=== PATIENT | female | born 2000 | race Hispanic/Latino ===

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

== ENCOUNTER 2023-09-02 11:54 | Emergency (ER) | payer OTHER, SELFPAY ==
[2023-09-02] MEDS ORDERED: GABAPENTIN 300 MG CAP ONE (12:07)
[2023-09-02] MEDS ORDERED: DIAZEPAM 10 MG/2 ML INJ SYRINGE ONE (12:07)
[2023-09-02] MEDS ORDERED: CYCLOBENZAPRINE 10 MG TAB ONE (12:07)
--- NOTE | 2023-09-02 13:31 | RAD REPORT ---
EXAM DESCRIPTION: CT - C Spine Wo Con - 09/02/2023 1:06 pm CLINICAL HISTORY: Left radiculopathy COMPARISON: None TECHNIQUE: Computed axial tomography of the cervical spine were obtained with sagittal and coronal r econstruction images generated and reviewed. All CT scans are performed using dose optimization technique as appropriate and may include automated exposure control or mA/KV adjustment according to patient size. FINDINGS: A cervical fracture is not seen. No dislocation. C1-2 to C4-5 appear unremarkable Evaluation of C5-6 through C7-T1 is suboptimal secondary to artifact. No gross abnormality of neural foramina. Limited evaluation spinal canal. 5 millimeter sclerosis vertebral body C5. A smaller area of sclerosis vertebral body C4 IMPRESSION: A cervical fracture is not seen. Unremarkable evaluation upper and mid cervical spine Limited evaluation of the distal cervical spine. If the patient continues have symptoms to suggest spinal cord/spinal canal/ neural foraminal patholog y then MRI would be recommended. Small areas of sclerosis within C4 and C5 are nonspecific. A followup x-ray cervical spine in 3 month s recommended for re-evaluation
--- NOTE | 2023-09-02 13:35 | EDPHYS ---
Physician Documentation [facility] Name: Josee Carl Age: 23 yrs Sex: Female : 2000 Arrival Date: 09/02/2023 Time: 11:54 Bed 5 Private MD: ED Physician Thompson Desir HPI: 09/01 12:05 This 23 yrs old Female presents to ER via Unassigned with complaints of Stiff sb4 Neck. 12:05 The patient or guardian complains of pain, that is acute. The symptoms are located on sb4 the left posterior aspect of neck and left lateral aspect of neck. Onset: The symptoms/episode began/occurred this morning. Context: The neck injury/problem resulted from from unknown cause. Associated signs and symptoms: Pertinent negatives: headache, numbness, tingling. The pain radiates to the left arm. The patient has not experienced similar symptoms in the past. pain/stiffness in left neck that radiates down left arm. no numbness, tingling, weakness. no known injury. tried icy hot without significant improvement. Historical: - Allergies: 12:06 No Known Allergies; ll1 - PMHx: 12:06 None; ll1 - PSHx: 12:06 None; ll1 - Immunization history:: Adult Immunizations up to date. - Social history:: Smoking status: Patient denies any tobacco usage or history of. ROS: 12:05 Constitutional: Negative for fever, chills, and weight loss, sb4 12:05 Neck: Positive for pain with movement, pain at rest, stiffness, of the left lateral aspect of neck and left posterior aspect of neck, 12:05 All other systems are negative, Exam: 12:05 ENT: Mucous membranes moist. sb4 12:05 Constitutional: The patient appears in no acute distress, alert, awake, obese, 12:05 Neck: External neck: tenderness, that is mild, of the left posterior aspect of neck and left lateral aspect of neck, ROM/movement: pain, that is mild, with any movement, limited range of motion, is not appreciated, Meningeal signs: are not present, nuchal rigidity, is not appreciated, Vital Signs: 12:06 BP 148 / 92; Pulse 80; Resp 16; Temp 97.9; Pulse Ox 98% on R/A; Weight 113.4 kg; Height ll1 5 ft. 5 in. ; Pain 5/10; 13:44 BP 132 / 86; Pulse 84; Resp 18; Pulse Ox 100% on R/A; mb9 12:06 Body Mass Index 41.60 (113.40 kg, 165.1 cm) ll1 12:06 Pain Scale: Adult ll1 MDM: 12:00 Patient medically screened. sb4 13:34 Data reviewed: vital signs, nurses notes, radiologic studies, and as a result, I will sb4 discharge patient. Counseling: I had a detailed discussion with the patient and/or guardian regarding the historical points, exam findings, and any diagnostic results supporting the discharge/admit diagnosis, radiology results, to return to the emergency department if symptoms worsen or persist or if there are any questions or concerns that arise at home. 09/01 12:04 Order name: CT C Spine; Complete Time: 13:33 sb4 Administered Medications: 12:12 Drug: Cyclobenzaprine PO 10 mg PO once Route: PO; as6 13:45 Follow up: Response: No adverse reaction mb9 12:12 Drug: Gabapentin PO 300 mg PO once Route: PO; as6 13:45 Follow up: Response: No adverse reaction mb9 12:12 Drug: Diazepam IM 5 mg IM once Route: IM; Site: right deltoid; as6 13:45 Follow up: Response: No adverse reaction mb9 Disposition: 14:51 I was immediately available on-site in the Emergency Department for consultation in the ms3 care of the patient. Disposition Summary: 09/02/23 13:35 Discharge Ordered Notes: Location: Home sb4 Problem: new sb4 Symptoms: have improved sb4 Condition: Stable sb4 Diagnosis - Radiculopathy, cervical region sb4 Followup: sb4 - With: Emergency Department - When: As needed - Reason: Trouble breathing, Worsening of condition Discharge Instructions: - Discharge Summary Sheet sb4 - Pinched Nerve sb4 - Neck Exercises sb4 Forms: - Thank You Letter sb4 - Patient Portal Instructions sb4 - Leadership Thank You Letter sb4 Prescriptions: - Ibuprofen 800 mg Oral Tablet - take 1 tablet ORAL route every 8 hours As needed take with food; 30 tablet; sb4 Refills: 0, Product Selection Permitted - Cyclobenzaprine 10 mg Oral Tablet - take 1 tablet ORAL route every 8 hours As needed; 30 tablet; Refills: 0, sb4 Product Selection Permitted Signatures: Dispatcher [employer] Ryder Rajan, RN RN ll1 Thompson Desir, DO SHIRLEY ms3 Fredi Joshi RN RN as6 Marylin [place], CARRIE BUTLER sb4 Lali Rogers RN mb9
--- NOTE | 2023-09-02 13:35 | ER ---
Nurse's Notes [facility] Name: Josee Carl Age: 23 yrs Sex: Female : 2000 Arrival Date: 09/02/2023 Time: 11:54 Bed 5 Private MD: Diagnosis: Radiculopathy, cervical region Presentation: 09/01 12:06 Chief complaint: Patient states: L side of neck pain with movements, radiates into L ll1 arm. Started after she woke up this AM. No trauma or falls. Coronavirus screen: Client denies travel out of the [place] in the last 14 days. At this time, the client does not indicate any symptoms associated with coronavirus-19. Ebola Screen: Patient denies travel to an Ebola-affected area in the 21 days before illness onset. Initial Sepsis Screen: Does the patient meet any 2 criteria? No. Patient's initial sepsis screen is negative. Does the patient have a suspected source of infection? No. Patient's initial sepsis screen is negative. Risk Assessment: Do you want to hurt yourself or someone else? Patient reports no desire to harm self or others. Onset of symptoms was September 02, 2023. 12:06 Method Of Arrival: Ambulatory ll1 12:06 Acuity: IKE 3 ll1 Historical: - Allergies: 12:06 No Known Allergies; ll1 - PMHx: 12:06 None; ll1 - PSHx: 12:06 None; ll1 - Immunization history:: Adult Immunizations up to date. - Social history:: Smoking status: Patient denies any tobacco usage or history of. Screenin:08 [facility] ED Fall Risk Assessment (Adult) History of falling in the last 3 months, mb9 including since admission No falls in past 3 months (0 pts) Confusion or Disorientation No (0 pts) Intoxicated or Sedated No (0 pts) Impaired Gait No (0 pts) Mobility Assist Device Used No (0 pt) Altered Elimination No (0 pt) Score/Fall Risk Level 0 - 2 = Low Risk Oriented to surroundings, Maintained a safe environment, Educated pt \T\ family on fall prevention, incl call for assistance when getting out of bed. Abuse screen: Denies threats or abuse. Nutritional screening: No deficits noted. Tuberculosis screening: No symptoms or risk factors identified. Assessment: 12:12 General: Appears in no apparent distress. Behavior is calm, cooperative. Pain: mb9 Complains of pain in neck Pain radiates to left arm Pain currently is 7 out of 10 on a pain scale. Quality of pain is described as throbbing, Pain began suddenly. Neuro: Hines Agitation-Sedation Scale (RASS): 0 - Alert and Calm Level of Consciousness is awake, alert, obeys commands, Oriented to person, place, time, situation, Appropriate for age. Cardiovascular: Patient's skin is warm and dry. Respiratory: Airway is patent Respiratory effort is even, unlabored, Respiratory pattern is regular, symmetrical. GI: No signs and/or symptoms were reported involving the gastrointestinal system. : No signs and/or symptoms were reported regarding the genitourinary system. EENT: No signs and/or symptoms were reported regarding the EENT system. Derm: Skin is pink, warm \T\ dry. Musculoskeletal: Range of motion: limited in left lateral aspect of neck and left posterior aspect of neck. 13:10 Reassessment: Patient and/or family updated on plan of care and expected duration. Pain mb9 level reassessed. Patient is alert, oriented x 3, equal unlabored respirations, skin warm/dry/pink. Patient states feeling better. Patient states symptoms have improved. Vital Signs: 12:06 BP 148 / 92; Pulse 80; Resp 16; Temp 97.9; Pulse Ox 98% on R/A; Weight 113.4 kg; Height ll1 5 ft. 5 in. ; Pain 5/10; 13:44 BP 132 / 86; Pulse 84; Resp 18; Pulse Ox 100% on R/A; mb9 12:06 Body Mass Index 41.60 (113.40 kg, 165.1 cm) ll1 12:06 Pain Scale: Adult ll1 ED Course: 11:58 Patient arrived in ED. ra3 11:58 Marylin [place] PA-C is PHCP. sb4 11:58 Thompson Desir DO is Attending Physician. sb4 12:05 Arm band placed on Patient placed in an exam room, on a stretcher. ll1 12:07 Triage completed. ll1 12:08 Placed in gown. Bed in low position. Call light in reach. Side rails up X 1. Provided mb9 Education on: press call light if needing anything. Client placed on continuous cardiac and pulse oximetry monitoring. NIBP monitoring applied. Door closed. Noise minimized. Warm blanket given. 12:09 Lali Rogers, RN is Primary Nurse. mb9 13:06 CT C Spine In Process Unspecified. EDMS 13:44 No provider procedures requiring assistance completed. Patient did not have IV access mb9 during this emergency room visit. Administered Medications: 12:12 Drug: Cyclobenzaprine PO 10 mg PO once Route: PO; as6 13:45 Follow up: Response: No adverse reaction mb9 12:12 Drug: Gabapentin PO 300 mg PO once Route: PO; as6 13:45 Follow up: Response: No adverse reaction mb9 12:12 Drug: Diazepam IM 5 mg IM once Route: IM; Site: right deltoid; as6 13:45 Follow up: Response: No adverse reaction mb9 Medication: 12:08 VIS not applicable for this client. mb9 Outcome: 13:35 Discharge ordered by MD. sb4 13:44 Discharged to home ambulatory, mb9 13:44 Condition: stable 13:44 Discharge instructions given to patient, family, Instructed on discharge instructions, follow up and referral plans. Demonstrated understanding of instructions, follow-up care, medications, Prescriptions given X 2, 13:45 Patient left the ED. mb9 Signatures: Dispatcher [employer] Ryder Rajan, RN RN ll1 Fredi Joshi RN RN as6 Marylin [place], PARachael PALali Montoya, RN RN mb9 Jennie Snell 3
[2023-09-02 14:05] VITALS: BP 132/86; TEMP 97.9; O2SAT 100
== END 2023-09-02 13:45 | disposition home or self-care (01) ==
LOC: ER 11:54
DX: M54.12 Radiculopathy, cervical region (principal)
CPT/HCPCS: 72125; 96372; 99284; J3360

== ENCOUNTER 2024-01-12 06:33 | Emergency (ER) | payer SELFPAY ==
[2024-01-12] MEDS ORDERED: NA CHLORIDE 0.9% 1,000 ML ONE (06:56)
[2024-01-12] MEDS ORDERED: ONDANSETRON 4 MG/2 ML VIAL ONE (06:56)
[2024-01-12 07:04] LABS: Absolute Basophils 0.1 K/uL (0-0.5); Absolute Eosinophils 0.1 K/uL (0-0.5); Absolute Lymphocytes (CBC) 2.8 K/uL (0.7-4.9); Absolute Monocytes 0.5 K/uL (0.1-1.3); Absolute Neutrophil 4.1 K/uL (1.8-8.0); Basophils % 0.7 % (0-1.3); Eosinophils % 1.6 % (0-4.4); Hematocrit 41.5 % (36.0-45.0); Hemoglobin 13.2 g/dL (12.0-15.0); Lymphocytes % 37.3 % (15.3-44.8); MCH 25.7 pg (27.0-35.0); MCHC 31.9 g/dL (32.0-36.0); MCV 80.6 fL (80-100); MPV 8.4 fL (7.6-11.3); Neutrophils % 54.4 % (41.7-73.7); Platelets 367 thou/uL (152-406); RBC Red Blood Cell Count 5.16 M/uL (3.86-4.86); Red Cell Distribution Width 14.6 % (12.1-15.2)
[2024-01-12] MEDS ORDERED: DIPHENHYDRAMINE 50 MG/ML VIAL ONE (07:18)
[2024-01-12] MEDS ORDERED: KETOROLAC 30 MG/ML INJ ONE (07:18)
[2024-01-12 07:19] LABS: Albumin 3.5 g/dL (3.4-5.0); Albumin/Globulin Ratio 0.9 (1.1-1.8); Anion Gap 9.1 mEq/L (5.0-15.0); Bilirubin Total 0.4 mg/dL (0.2-1.0); Globulin 3.7 g/dL (2.3-3.5); Potassium 4.1 mEq/L (3.5-5.1); Protein, Total 7.2 g/dL (6.4-8.2)
[2024-01-12 07:43] LABS: Specific Gravity 1.026 (1.005-1.030); Sqamous Epithelial <5 /HPF (None Seen); Urine Bacteria None Seen /HPF (<20); Urine Bilirubin NEGATIVE (Negative); Urine Blood Negative (Negative); Urine Clarity Extremely Turbid (Clear); Urine Color Light-Yellow (Yellow); Urine Culture Reflex Order NOT NEEDED; Urine Glucose NEGATIVE (Negative); Urine Ketones NEGATIVE (Negative); Urine Microscopic Reflex YN ORDER UMIC; Urine Mucus Slight /HPF (None Seen); Urine Nitrite NEGATIVE (Negative); Urine Protein TRACE (Negative); Urine RBC <5 /HPF (None Seen); Urine Urobilinogen Normal (Normal); Urine WBC <5 /HPF (<5)
--- NOTE | 2024-01-12 07:53 | RAD REPORT ---
EXAM DESCRIPTION: CT - Head Brain Wo Cont - 01/12/2024 7:41 am CLINICAL HISTORY: HEADACHE COMPARISON: No comparisons TECHNIQUE: All CT scans are performed using dose optimization technique as appropriate and may inclu de automated exposure control or mA/KV adjustment according to patient size. FINDINGS: No intracranial hemorrhage, hydrocephalus or extra-axial fluid collection.No areas of brai n edema or evidence of midline shift. The paranasal sinuses and mastoids are clear. The calvarium is intact. IMPRESSION: No acute intracranial abnormality.
--- NOTE | 2024-01-12 08:04 | EDPHYS ---
Physician Documentation [facility] Name: Josee Carl Age: 23 yrs Sex: Female : 2000 Arrival Date: 01/12/2024 Time: 06:33 Bed 17 Private MD: ED Physician Andres Uriostegui HPI: 01/11 07:14 This 23 yrs old Female presents to ER via Ambulatory with complaints of madhu Nausea/Vomiting, Headache. 07:14 The patient presents to the emergency department with nausea, vomiting, that is madhu continuous. Onset: The symptoms/episode began/occurred this morning. Possible causes: unknown. The symptoms are aggravated by nothing. The symptoms are alleviated by nothing. Associated signs and symptoms: Pertinent positives: diarrhea, nausea, vomiting. Severity of symptoms: At their worst the symptoms were mild moderate in the emergency department the symptoms are unchanged. The patient has experienced similar episodes in the past. 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 - Infectious Disease History:: Denies. - Social history:: Smoking status: Patient denies any tobacco usage or history of. - Family history:: not pertinent. ROS: 07:14 Constitutional: Negative for fever, chills, and weight loss, Eyes: Negative for injury, madhu pain, redness, and discharge, ENT: Negative for injury, pain, and discharge, Neck: Negative for injury, pain, and swelling, Cardiovascular: Negative for chest pain, palpitations, and edema, Respiratory: Negative for shortness of breath, cough, wheezing, and pleuritic chest pain, Back: Negative for injury and pain, : Negative for injury, bleeding, discharge, and swelling, MS/Extremity: Negative for injury and deformity, Skin: Negative for injury, rash, and discoloration, Psych: Negative for depression, anxiety, suicide ideation, homicidal ideation, and hallucinations, Allergy/Immunology: Negative for hives, rash, and allergies, Endocrine: Negative for neck swelling, polydipsia, polyuria, polyphagia, and marked weight changes, Hematologic/Lymphatic: Negative for swollen nodes, abnormal bleeding, and unusual bruising, 07:14 Abdomen/GI: Positive for nausea and vomiting, diarrhea, Exam: 07:14 Constitutional: This is a well developed, well nourished patient who is awake, alert, madhu and in no acute distress. Head/Face: Normocephalic, atraumatic. Eyes: Pupils equal round and reactive to light, extra-ocular motions intact. Lids and lashes normal. Conjunctiva and sclera are non-icteric and not injected. Cornea within normal limits. Periorbital areas with no swelling, redness, or edema. ENT: Nares patent. No nasal discharge, no septal abnormalities noted. Tympanic membranes are normal and external auditory canals are clear. Oropharynx with no redness, swelling, or masses, exudates, or evidence of obstruction, uvula midline. Mucous membranes moist. Neck: Trachea midline, no thyromegaly or masses palpated, and no cervical lymphadenopathy. Supple, full range of motion without nuchal rigidity, or vertebral point tenderness. No Meningismus. Chest/axilla: Normal chest wall appearance and motion. Nontender with no deformity. No lesions are appreciated. Cardiovascular: Regular rate and rhythm with a normal S1 and S2. No gallops, murmurs, or rubs. Normal PMI, no JVD. No pulse deficits. Respiratory: Lungs have equal breath sounds bilaterally, clear to auscultation and percussion. No rales, rhonchi or wheezes noted. No increased work of breathing, no retractions or nasal flaring. Abdomen/GI: Soft, non-tender, with normal bowel sounds. No distension or tympany. No guarding or rebound. No evidence of tenderness throughout. Back: No spinal tenderness. No costovertebral tenderness. Full range of motion. Skin: Warm, dry with normal turgor. Normal color with no rashes, no lesions, and no evidence of cellulitis. MS/ Extremity: Pulses equal, no cyanosis. Neurovascular intact. Full, normal range of motion. Neuro: Awake and alert, GCS 15, oriented to person, place, time, and situation. Cranial nerves II-XII grossly intact. Motor strength 5/5 in all extremities. Sensory grossly intact. Cerebellar exam normal. Normal gait. Psych: Awake, alert, with orientation to person, place and time. Behavior, mood, and affect are within normal limits. 07:14 Neck: ROM/movement: is normal, no acute changes, pain, is not appreciated, limited range of motion, is not appreciated, Meningeal signs: are not present, Kernig's sign is negative, Brudzinski's sign is negative, nuchal rigidity, is not appreciated, Vital Signs: 06:42 BP 132 / 77; Pulse 70; Resp 17; Temp 97.8; Pulse Ox 99% ; Pain 8/10; cp4 08:20 BP 125 / 78; Pulse 73; Resp 17; Pulse Ox 98% on R/A; rs5 06:42 Pain Scale: Adult cp4 MDM: 06:44 Patient medically screened. ec2 07:07 Patient medically screened. madhu 07:16 Differential diagnosis: Nonspecific abd pain, gastritis, viral gastroenteritis, madhu gastroenteritis. Data reviewed: vital signs, nurses notes, lab test result(s), radiologic studies, CT scan. Consideration of Admission/Observation Escalation of care including admission/observation considered. I considered the following discharge prescriptions or medication management in the emergency department Medications were administered in the Emergency Department. See MAR. Independent interpretation of the following test(s) in the Emergency Department CT Scan: My interpretation is ct head. 01/11 06:41 Order name: CBC with Diff; Complete Time: 07:13 ec2 01/11 06:41 Order name: CMP; Complete Time: 07:36 ec2 01/11 06:41 Order name: Test, Urine; Complete Time: 08:02 ec2 01/11 06:41 Order name: Urinalysis w/ reflexes; Complete Time: 08:02 ec2 01/11 07:13 Order name: CT Head Brain wo Cont; Complete Time: 08:02 [facility] 01/11 06:41 Order name: IV Saline Lock; Complete Time: 06:54 ec2 01/11 06:41 Order name: Labs collected and sent; Complete Time: 06:54 ec2 Administered Medications: 06:59 Drug: NS 0.9% IV 1000 ml IV at 1 bolus Per protocol; 1000 mL bolus Route: IV; Rate: 1 cp4 bolus; Site: left antecubital; 08:15 Follow up: Response: No adverse reaction; IV Status: Completed infusion; IV Intake: rs5 1000ml 07:00 Drug: Ondansetron IVP 4 mg IVP once; over 2 minutes Route: IVP; Site: left antecubital; cp4 07:30 Follow up: Response: No adverse reaction; Nausea is decreased rs5 07:21 Drug: Ketorolac IVP 30 mg IVP once Route: IVP; Site: left antecubital; rs5 07:40 Follow up: Response: No adverse reaction; Pain is decreased rs5 07:21 Drug: diphenhydrAMINE IVP 25 mg IVP once Route: IVP; Site: left antecubital; rs5 07:40 Follow up: Response: No adverse reaction; Pain is decreased rs5 Disposition Summary: 01/12/24 08:03 Discharge Ordered Notes: Location: Home madhu Problem: new madhu Symptoms: have improved madhu Condition: Stable madhu Diagnosis - Headache madhu - Vomiting madhu - Diarrhea, unspecified madhu Followup: madhu - With: Private Physician - When: 2 - 3 days - Reason: Recheck today's complaints, Continuance of care, Re-evaluation by your physician Discharge Instructions: - Discharge Summary Sheet madhu - Food Choices to Help Relieve Diarrhea, Adult madhu - Diarrhea, Adult madhu - General Headache Without Cause madhu - General Headache Without Cause, [id number] madhu - Vomiting, Adult madhu Forms: - Medication Reconciliation Form madhu - Antibiotic Education madhu - Prescription Opioid Use madhu - Patient Portal Instructions [facility] - Leadership Thank You Letter madhu - School release form rs5 - Work release form rs5 Prescriptions: - Fioricet with Codeine [id number] mg Oral capsule - take 2 capsule ORAL route every 4 hours as needed for pain; do not exceed 6 madhu caps per day; 15 capsule; Refills: 0, Product Selection Permitted - ondansetron HCl 8 mg Oral tablet - take 1 tablet ORAL route every 6-8 hours for 4 days as needed for nausea and madhu vomiting; 18 tablet; Refills: 0, Product Selection Permitted Signatures: Dispatcher [employer] Andres Herrera MD MD cha Sotelo, Ricky RN RN rs5 Sanjay Govea MD MD [facility] Jenna Hernandez 4 Corrections: (The following items were deleted from the chart) 07:13 07:13 Head Brain Wo [id number].RAD.[id number] ordered. SARAH SMITH
--- NOTE | 2024-01-12 08:04 | ER ---
Nurse's Notes [facility] Name: Josee Carl Age: 23 yrs Sex: Female : 2000 Arrival Date: 01/12/2024 Time: 06:33 Bed 17 Private MD: Diagnosis: Headache;Vomiting;Diarrhea, unspecified Presentation: 01/11 06:42 Chief complaint: Patient states: headache and vomiting that started at 0400. cp4 Coronavirus screen: Client denies travel out of the [place] in the last 14 days. At this time, the client does not indicate any symptoms associated with coronavirus-19. Ebola Screen: Patient negative for fever greater than or equal to 101.5 degrees Fahrenheit, and additional compatible Ebola Virus Disease symptoms Patient denies exposure to infectious person. Patient denies travel to an Ebola-affected area in the 21 days before illness onset. No symptoms or risks identified at this time. Initial Sepsis Screen: Does the patient meet any 2 criteria? No. Patient's initial sepsis screen is negative. Does the patient have a suspected source of infection? No. Patient's initial sepsis screen is negative. Risk Assessment: Do you want to hurt yourself or someone else? Patient reports no desire to harm self or others. Onset of symptoms was January 12, 2024. 06:42 Method Of Arrival: Ambulatory 4 06:42 Acuity: IKE 3 cp4 Triage Assessment: 06:43 General: Appears uncomfortable, Behavior is calm, cooperative, appropriate for age. cp4 Pain: Complains of pain in headache Pain currently is 8 out of 10 on a pain scale. EENT: No deficits noted. Neuro: Level of Consciousness is awake, alert, obeys commands, Oriented to person, place, time, situation. Cardiovascular: No deficits noted. Respiratory: No deficits noted. GI: Reports nausea, vomiting. : No deficits noted. Derm: No deficits noted. Musculoskeletal: No deficits noted. 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 - Infectious Disease History:: Denies. - Social history:: Smoking status: Patient denies any tobacco usage or history of. - Family history:: not pertinent. Screenin:45 [facility] ED Fall Risk Assessment (Adult) History of falling in the last 3 months, cp4 including since admission No falls in past 3 months (0 pts) Confusion or Disorientation No (0 pts) Intoxicated or Sedated No (0 pts) Impaired Gait No (0 pts) Mobility Assist Device Used No (0 pt) Altered Elimination No (0 pt) Score/Fall Risk Level 0 - 2 = Low Risk Oriented to surroundings, Maintained a safe environment, Assessed \T\ reinforced patient's understanding of fall precautions, Hourly rounding (assess needs \T\ fall precautionary measures) done. Abuse screen: Denies threats or abuse. Nutritional screening: No deficits noted. Tuberculosis screening: No symptoms or risk factors identified. Assessment: 06:45 Reassessment: No changes from previously documented assessment. cp4 07:01 General: Appears in no apparent distress. uncomfortable, Behavior is calm, cooperative. rs5 Pain: Complains of pain in abdomen Pain currently is 7 out of 10 on a pain scale. Quality of pain is described as aching, Is continuous. Neuro: Level of Consciousness is awake, alert, obeys commands, Oriented to person, place, time, situation. Cardiovascular: Patient's skin is warm and dry. Respiratory: Airway is patent Respiratory effort is even, unlabored, Respiratory pattern is regular, symmetrical. GI:. GI: Abdomen is round non-distended, Abd is soft and non tender X 4 quads. : No signs and/or symptoms were reported regarding the genitourinary system. EENT: No signs and/or symptoms were reported regarding the EENT system. Derm: Skin is intact, Skin is pink, warm \T\ dry. Musculoskeletal: Range of motion: intact in all extremities. 08:15 Reassessment: Patient and/or family updated on plan of care and expected duration. Pain rs5 level reassessed. Patient is alert, oriented x 3, equal unlabored respirations, skin warm/dry/pink. Patient denies pain at this time. Patient states feeling better. Vital Signs: 06:42 BP 132 / 77; Pulse 70; Resp 17; Temp 97.8; Pulse Ox 99% ; Pain 8/10; cp4 08:20 BP 125 / 78; Pulse 73; Resp 17; Pulse Ox 98% on R/A; rs5 06:42 Pain Scale: Adult cp4 ED Course: 06:36 Patient arrived in ED. gm2 06:42 Jenna Hernandez is Primary Nurse. cp4 06:43 Triage completed. cp4 06:43 Arm band placed on right wrist. Patient placed in waiting room. cp4 06:45 Bed in low position. Call light in reach. Side rails up X 1. cp4 06:54 No provider procedures requiring assistance completed. Inserted saline lock: 20 gauge cp4 in left antecubital area, using aseptic technique. Blood collected. Flushed with 10 mL NS. 07:03 Andres Uriostegui MD is Attending Physician. madhu 07:43 CT Head Brain wo Cont In Process Unspecified. EDMS 08:20 IV discontinued, intact, bleeding controlled, No redness/swelling at site. Pressure rs5 dressing applied. Administered Medications: 06:59 Drug: NS 0.9% IV 1000 ml IV at 1 bolus Per protocol; 1000 mL bolus Route: IV; Rate: 1 cp4 bolus; Site: left antecubital; 08:15 Follow up: Response: No adverse reaction; IV Status: Completed infusion; IV Intake: rs5 1000ml 07:00 Drug: Ondansetron IVP 4 mg IVP once; over 2 minutes Route: IVP; Site: left antecubital; cp4 07:30 Follow up: Response: No adverse reaction; Nausea is decreased rs5 07:21 Drug: Ketorolac IVP 30 mg IVP once Route: IVP; Site: left antecubital; rs5 07:40 Follow up: Response: No adverse reaction; Pain is decreased rs5 07:21 Drug: diphenhydrAMINE IVP 25 mg IVP once Route: IVP; Site: left antecubital; rs5 07:40 Follow up: Response: No adverse reaction; Pain is decreased rs5 Medication: 06:45 VIS not applicable for this client. cp4 Intake: 08:15 IV: 1000ml; Total: 1000ml. rs5 Outcome: 08:03 Discharge ordered by . madhu 08:20 Discharged to home ambulatory, rs5 08:20 Condition: stable 08:20 Discharge instructions given to patient, family, Instructed on discharge instructions, follow up and referral plans. medication usage, Demonstrated understanding of instructions, follow-up care, medications, Prescriptions given X 2, 08:23 Patient left the ED. rs5 Signatures: Dispatcher [employer] EDAndres Thomas MD MD cha Sotelo, Ricky, RN RN rs5 Jenna Hernandez cp4 Jessy Birmingham gm2 Corrections: (The following items were deleted from the chart) 07:01 GI: Abdomen is round non-distended, Abd is soft and non tender X 4 quads. rs5 rs5 08 07:01 GI: Patient currently denies nausea, rs5 rs5
[2024-01-12 08:32] VITALS: BP 132/77; TEMP 97.8; O2SAT 99
== END 2024-01-12 08:23 | disposition home or self-care (01) ==
LOC: ER 06:33
DX: R51.9 Headache, unspecified (principal); R11.10 Vomiting, unspecified; R19.7 Diarrhea, unspecified
CPT/HCPCS: 36415; 70450; 80053; 81001; 81025; 85025; 96361; 96374; 96375; 99284; J1200; J2405; J7030

== ENCOUNTER 2024-02-01 16:44 | Emergency (ER) | payer OTHER ==
[2024-02-01 18:48] LABS: SARS-CoV-2 Antigen CONTROL BLUE LINE VIS/BG OK; SARS-CoV-2 Antigen Rapid Res Negative (Negative)
--- NOTE | 2024-02-01 19:30 | ER ---
Nurse's Notes [facility] Name: Josee Carl Age: 23 yrs Sex: Female : 2000 Arrival Date: 02/01/2024 Time: 16:44 Bed 10 Private MD: Diagnosis: Acute pharyngitis, unspecified Presentation: 01/31 16:49 Chief complaint: Patient states: sore throat, hurts to swallow and speak, losing voice, tm6 congested, eyes feel heavy. I get really cold and my face feels hot. Started Monday01/29/24. Coronavirus screen: Vaccine status: Patient reports being unvaccinated. Ebola Screen: Patient negative for fever greater than or equal to 101.5 degrees Fahrenheit, and additional compatible Ebola Virus Disease symptoms Patient denies exposure to infectious person. Patient denies travel to an Ebola-affected area in the 21 days before illness onset. No symptoms or risks identified at this time. Initial Sepsis Screen: Does the patient meet any 2 criteria? No. Patient's initial sepsis screen is negative. Does the patient have a suspected source of infection? No. Patient's initial sepsis screen is negative. Risk Assessment: Do you want to hurt yourself or someone else? Patient reports no desire to harm self or others. Onset of symptoms was January 29, 2024. 16:49 Method Of Arrival: Ambulatory tm6 16:49 Acuity: IKE 4 tm6 Triage Assessment: 16:50 General: Appears in no apparent distress. uncomfortable, Behavior is calm, cooperative. tm6 Pain: Denies pain. EENT: Reports difficulty swallowing nasal congestion. EENT: Reports pain in throat when swallowing. Neuro: Level of Consciousness is awake, alert, obeys commands, Oriented to person, place, time, situation. Cardiovascular: Patient's skin is warm and dry. Respiratory: Reports cough that is Airway is patent Respiratory effort is even, unlabored, Respiratory pattern is regular, symmetrical. GI: No signs and/or symptoms were reported involving the gastrointestinal system. Abdomen is round non-distended. : No signs and/or symptoms were reported regarding the genitourinary system. Derm: No signs and/or symptoms reported regarding the dermatologic system. Musculoskeletal: No signs and/or symptoms reported regarding the musculoskeletal system. 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 - Infectious Disease History:: Denies. - Social history:: Smoking status: Patient denies any tobacco usage or history of. Patient uses alcohol, but reports only rare drinking. Screenin:38 [facility] ED Fall Risk Assessment (Adult) History of falling in the last 3 months, tl4 including since admission No falls in past 3 months (0 pts) Confusion or Disorientation No (0 pts) Intoxicated or Sedated No (0 pts) Impaired Gait No (0 pts) Mobility Assist Device Used No (0 pt) Altered Elimination No (0 pt) Score/Fall Risk Level 0 - 2 = Low Risk Oriented to surroundings, Maintained a safe environment, Educated pt \T\ family on fall prevention, incl call for assistance when getting out of bed, Assessed \T\ reinforced patient's understanding of fall precautions. Abuse screen: Denies threats or abuse. Denies injuries from another. Nutritional screening: No deficits noted. Tuberculosis screening: No symptoms or risk factors identified. Assessment: 18:00 General: Appears in no apparent distress. Behavior is calm, cooperative. Pain: tl4 Complains of pain in generalized body aches. Neuro: Level of Consciousness is awake, alert, obeys commands, Oriented to person, place, time, situation, Moves all extremities. Full function Speech is normal, Facial symmetry appears normal. Cardiovascular: Capillary refill < 3 seconds Patient's skin is warm and dry. Respiratory: Airway is patent Respiratory effort is even, unlabored, Respiratory pattern is regular, symmetrical, Breath sounds are clear bilaterally. GI: No signs and/or symptoms were reported involving the gastrointestinal system. : No signs and/or symptoms were reported regarding the genitourinary system. EENT: Reports nasal congestion pain when swallowing. Derm: No signs and/or symptoms reported regarding the dermatologic system. Musculoskeletal: No signs and/or symptoms reported regarding the musculoskeletal system. 19:58 Reassessment: Patient appears in no apparent distress at this time. tm6 Vital Signs: 16:48 Pulse 94; Resp 19; Temp 98.2(O); Pulse Ox 100% on R/A; Weight 113.4 kg; Height 5 ft. 5 tm6 in. ; Pain 0/10; 16:49 BP 132 / 100; tm6 19:58 BP 125 / 92; Pulse 91; Resp 18; Temp 98.2; Pulse Ox 100% on R/A; Pain 0/10; tm6 16:48 Body Mass Index 41.60 (113.40 kg, 165.1 cm) tm6 16:48 Pain Scale: Adult tm6 19:58 Pain Scale: Adult tm6 ED Course: 16:46 Patient arrived in ED. ra3 16:47 Andres Slater PA is PHCP. cp 16:48 Leon Arizmendi MD is Attending Physician. cp 16:50 Triage completed. tm6 16:50 Arm band placed on right wrist. tm6 18:10 Iván Patterson, MAXIM is Primary Nurse. tl4 18:15 COVID swab sent to lab. Flu and/or RSV swab sent to lab. Strep swab sent to lab. tl4 18:37 Strep Sent. tl4 18:37 Influenza Screen (a \T\ B) Sent. tl4 18:37 SARS RAPID Sent. tl4 18:43 Patient has correct armband on for positive identification. Bed in low position. Call tl4 light in reach. Side rails up X 1. Provided Education on: call puga, ed process. Door closed. Noise minimized. Lights dimmed. Moved to private room. Warm blanket given. 18:43 No provider procedures requiring assistance completed. Patient did not have IV access tl4 during this emergency room visit. Administered Medications: No medications were administered Medication: 18:42 VIS not applicable for this client. tl4 Outcome: 19:30 Discharge ordered by . cp 19:58 Discharged to home ambulatory, with family, tm6 19:58 Condition: stable 19:58 Discharge instructions given to patient, family, Instructed on discharge instructions, follow up and referral plans. medication usage, Demonstrated understanding of instructions, follow-up care, medications, Prescriptions given X 2, 19:59 Patient left the ED. tm6 Signatures: Andres Slater PA PA cp Masterson, Tawney, RN RN tm6 Iván Patterson RN RN tl4 Jennie Snell ra3
--- NOTE | 2024-02-01 19:30 | EDPHYS ---
Physician Documentation [facility] Name: Josee Carl Age: 23 yrs Sex: Female : 2000 Arrival Date: 02/01/2024 Time: 16:44 Bed 10 Private MD: ED Physician Leon Arizmendi HPI: 01/31 16:55 This 23 yrs old Female presents to ER via Ambulatory with complaints of Cold cp Symptoms - covid test. 16:55 The patient or guardian reports cough, sore throat, congestion. cp 16:55 Onset: The symptoms/episode began/occurred 3 day(s) ago. cp 16:55 Associated signs and symptoms: Pertinent positives: rhinorrhea, sore throat, Pertinent cp negatives: diarrhea, fever, vomiting. 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 - Infectious Disease History:: Denies. - Social history:: Smoking status: Patient denies any tobacco usage or history of. Patient uses alcohol, but reports only rare drinking. ROS: 17:00 Constitutional: Positive for body aches, chills, Negative for fever, poor PO intake, cp 17:00 ENT: Positive for sore throat, Negative for drainage from ear(s), ear pain, difficulty cp swallowing, difficulty handling secretions, 17:00 Respiratory: Positive for cough, Negative for shortness of breath, wheezing, 17:00 Abdomen/GI: Negative for vomiting, diarrhea, constipation, 17:00 Eyes: Negative for injury, pain, redness, and discharge, cp 17:00 Skin: Negative for rash, cp 17:00 Neuro: Negative for altered mental status, headache, weakness, 17:00 All other systems are negative, Exam: 17:05 Constitutional: The patient appears in no acute distress, alert, awake, non-toxic, well cp developed, well nourished, obese, 17:05 Head/Face: Normocephalic, atraumatic. cp 17:05 Eyes: Periorbital structures: appear normal, Conjunctiva: normal, no exudate, no injection, Sclera: no appreciated abnormality, Lids and lashes: appear normal, bilaterally, 17:05 ENT: External ear(s): are unremarkable, Ear canal(s): are normal, clear, TM's: dullness, bilaterally, Nose: is normal, Mouth: Lips: moist, Oral mucosa: moist, Posterior pharynx: Airway: no evidence of obstruction, patent, Tonsils: no enlargement, no exudate, erythema, that is mild, exudate, is not appreciated, 17:05 Neck: ROM/movement: Meningeal signs: are not present, Lymph nodes: no appreciated lymphadenopathy, 17:05 Chest/axilla: Inspection: normal, 17:05 Cardiovascular: Rate: normal, Rhythm: regular, 17:05 Respiratory: the patient does not display signs of respiratory distress, Respirations: normal, no use of accessory muscles, no retractions, labored breathing, is not present, Breath sounds: are clear throughout, no decreased breath sounds, no stridor, no wheezing, 17:05 Abdomen/GI: Inspection: abdomen appears normal, Vital Signs: 16:48 Pulse 94; Resp 19; Temp 98.2(O); Pulse Ox 100% on R/A; Weight 113.4 kg; Height 5 ft. 5 tm6 in. ; Pain 0/10; 16:49 BP 132 / 100; tm6 19:58 BP 125 / 92; Pulse 91; Resp 18; Temp 98.2; Pulse Ox 100% on R/A; Pain 0/10; tm6 16:48 Body Mass Index 41.60 (113.40 kg, 165.1 cm) tm6 16:48 Pain Scale: Adult tm6 19:58 Pain Scale: Adult tm6 MDM: 16:53 Patient medically screened. cp 19:00 Differential diagnosis: bronchitis, flu, URI. cp 19:30 Data reviewed: vital signs, nurses notes, lab test result(s), and as a result, I will cp discharge patient. 19:30 Antibiotic administration: Not indicated, the patient has a suspected viral illness. cp Counseling: I had a detailed discussion with the patient and/or guardian regarding the historical points, exam findings, and any diagnostic results supporting the discharge/admit diagnosis, lab results, to return to the emergency department if symptoms worsen or persist or if there are any questions or concerns that arise at home. 01/31 17:15 Order name: SARS RAPID cp 01/31 17:15 Order name: Influenza Screen (a \T\ B) cp 01/31 17:15 Order name: Strep cp 01/31 18:49 Order name: Throat Culture EDMS Administered Medications: No medications were administered Disposition: 20:37 Co-signature as Attending Physician, Leon Arizmendi MD I reviewed the patient's care rn provided by the Advanced Practice Provider and agree with the diagnosis and treatment plan. Disposition Summary: 02/01/24 19:30 Discharge Ordered Notes: Location: Home cp Problem: new cp Symptoms: have improved cp Condition: Stable cp Diagnosis - Acute pharyngitis, unspecified cp Followup: cp - With: Private Physician - When: 2 - 3 days - Reason: Worsening of condition Discharge Instructions: - Discharge Summary Sheet cp - Pharyngitis cp - Sore Throat cp Forms: - Medication Reconciliation Form cp - Antibiotic Education cp - Prescription Opioid Use cp - Patient Portal Instructions cp - Leadership Thank You Letter cp - Work release form tl4 Prescriptions: - Ibuprofen 800 mg Oral Tablet - take 1 tablet ORAL route every 8 hours As needed take with food; 30 tablet; cp Refills: 0, Product Selection Permitted - Tessalon Perles 100 mg Oral capsule - take 2 capsule ORAL route every 8 hours As needed; 30 capsule; Refills: 0, cp Product Selection Permitted Signatures: Dispatcher [employer] EDMS Leon Arizmendi MD MD rn Page, Corey, PA PA cp Masterson, Tawney RN RN tm6 Corrections: (The following items were deleted from the chart) 17:15 17:15 SARS-COV-2 Antigen Rapid+I.LAB.BRZ ordered. EDMS EDMS 17:15 17:15 Influenza Screen (A \T\ B)+BA.LAB.BRZ ordered. EDMS EDMS 17:15 17:15 Group A Streptococcus Rapid Sc+BA.LAB.BRZ ordered. EDMS EDMS
[2024-02-01 20:13] VITALS: TEMP 98.2; O2SAT 100
[2024-02-01 20:17] VITALS: BP 125/92
== END 2024-02-01 19:59 | disposition home or self-care (01) ==
LOC: ER 16:44
DX: J02.9 Acute pharyngitis, unspecified (principal); R05.9 Cough, unspecified; Z11.52 Encounter for screening for COVID-19
CPT/HCPCS: 36415; 87070; 87081; 87804; 87811; 99283

== ENCOUNTER 2024-02-19 16:29 | Emergency (ER) | payer OTHER ==
--- NOTE | 2024-02-19 17:49 | ER ---
Nurse's Notes [facility] Name: Josee Carl Age: 23 yrs Sex: Female : 2000 Arrival Date: 02/19/2024 Time: 16:29 Bed IW1 Private MD: Diagnosis: Presentation: 02/18 17:05 Chief complaint: Patient states: Headache and stiff neck X1 week. Pt reports that her cm10 headache is worse with movement. Coronavirus screen: Client denies travel out of the [place] in the last 14 days. At this time, the client does not indicate any symptoms associated with coronavirus-19. Ebola Screen: Patient denies travel to an Ebola-affected area in the 21 days before illness onset. No symptoms or risks identified at this time. Initial Sepsis Screen: Does the patient meet any 2 criteria? HR > 90 bpm. Does the patient have a suspected source of infection? No. Patient's initial sepsis screen is negative. Risk Assessment: Do you want to hurt yourself or someone else? Patient reports no desire to harm self or others. Onset of symptoms was February 19, 2024. 17:05 Method Of Arrival: Ambulatory cm10 17:05 Acuity: IKE 3 cm10 Triage Assessment: 17:06 General: Appears in no apparent distress. uncomfortable, Behavior is calm, cooperative. cm10 Pain: Complains of pain in head Pain currently is 10 out of 10 on a pain scale. Quality of pain is described as pressure, sharp, shooting, Pain began 1 week ago. Neuro: No deficits noted. Level of Consciousness is awake, alert, obeys commands, Oriented to person, place, time, situation, Appropriate for age. Respiratory: No deficits noted. Airway is patent Respiratory effort is even, unlabored, Respiratory pattern is regular, symmetrical. Historical: - Allergies: 17:06 No Known Allergies; cm10 - Home Meds: 17:06 None [Active]; cm10 - PMHx: 17:06 None; cm10 - PSHx: 17:06 None; cm10 - Immunization history:: Adult Immunizations up to date. - Infectious Disease History:: Denies. - Social history:: Smoking status: Patient denies any tobacco usage or history of. Assessment: 17:46 Reassessment: not in lobby, restroom, or lobby when called. ll1 Vital Signs: 17:05 BP 129 / 46; Pulse 92; Resp 16; Temp 97.3; Pulse Ox 97% on R/A; Weight 113.4 kg; Height cm10 5 ft. 5 in. ; Pain 1010; 17:05 Body Mass Index 41.60 (113.40 kg, 165.1 cm) cm10 17:05 Pain Scale: Adult cm10 ED Course: 16:41 Patient arrived in ED. im 16:45 Chelsi Lopez MD is Attending Physician. gb1 17:06 Triage completed. cm10 17:07 Arm band placed on Patient placed in waiting room. cm10 17:38 Patient told registration they were leaving because they didn't want to wait. ll1 Administered Medications: No medications were administered Outcome: 17:49 Patient left the ED. ll1 Signatures: Ryder Woodruff RN RN ll1 Julia Johnston Clarissa, RN RN cm10 Chelsi Lopez MD MD gb1
[2024-02-19 18:28] VITALS: BP 129/46; TEMP 97.3; O2SAT 97
== END 2024-02-19 17:49 | disposition left against medical advice (07) ==
LOC: ER 16:29
DX: Z53.21 Procedure and treatment not carried out due to patient leaving prior to being seen by health care provider (principal)
CPT/HCPCS: 99281